=== PATIENT | male | born 1950 | race Caucasian/White ===

== ENCOUNTER → 2023-08-15 10:39 | Outpatient (REF) | payer MEDICARE, SELFPAY | LOC: WOUND 10:39 | PROVIDERS: ATTENDING PHYSICIAN Surgery | DX: L89.313 Pressure ulcer of right buttock, stage 3 (principal); G35 Multiple sclerosis; I82.5Z9 Chronic embolism and thrombosis of unspecified deep veins of unspecified distal lower extremity; I79.0 Aneurysm of aorta in diseases classified elsewhere; I10 Essential (primary) hypertension; E55.9 Vitamin D deficiency, unspecified | CPT/HCPCS: 99204 ==

== ENCOUNTER → 2023-08-22 14:38 | Outpatient (REF) | payer MEDICARE, SELFPAY | LOC: WOUND 14:38 | PROVIDERS: ATTENDING PHYSICIAN Surgery | DX: L89.313 Pressure ulcer of right buttock, stage 3 (principal); G35 Multiple sclerosis; I82.5Z9 Chronic embolism and thrombosis of unspecified deep veins of unspecified distal lower extremity; I79.0 Aneurysm of aorta in diseases classified elsewhere; I10 Essential (primary) hypertension; E55.9 Vitamin D deficiency, unspecified | CPT/HCPCS: 11042 ==

== ENCOUNTER → 2023-09-05 10:24 | Outpatient (REF) | payer MEDICARE, SELFPAY | LOC: WOUND 10:24 | PROVIDERS: ATTENDING PHYSICIAN Surgery | DX: L89.313 Pressure ulcer of right buttock, stage 3 (principal); G35 Multiple sclerosis; I82.5Z9 Chronic embolism and thrombosis of unspecified deep veins of unspecified distal lower extremity; I79.0 Aneurysm of aorta in diseases classified elsewhere; I10 Essential (primary) hypertension; E55.9 Vitamin D deficiency, unspecified | CPT/HCPCS: 11042 ==

== ENCOUNTER → 2023-09-23 14:54 | Outpatient (REF) | payer MEDICARE, SELFPAY | LOC: WOUND 14:54 | PROVIDERS: ATTENDING PHYSICIAN Surgery | DX: L89.313 Pressure ulcer of right buttock, stage 3 (principal); G35 Multiple sclerosis; I82.5Z9 Chronic embolism and thrombosis of unspecified deep veins of unspecified distal lower extremity; I79.0 Aneurysm of aorta in diseases classified elsewhere; I10 Essential (primary) hypertension; E55.9 Vitamin D deficiency, unspecified | CPT/HCPCS: 11042 ==

== ENCOUNTER → 2023-10-06 13:57 | Outpatient (REF) | payer MEDICARE, OTHER, SELFPAY | LOC: WOUND 13:57 | PROVIDERS: ATTENDING PHYSICIAN Surgery | DX: L89.313 Pressure ulcer of right buttock, stage 3 (principal); G35 Multiple sclerosis; I82.5Z9 Chronic embolism and thrombosis of unspecified deep veins of unspecified distal lower extremity; I79.0 Aneurysm of aorta in diseases classified elsewhere; I10 Essential (primary) hypertension; E55.9 Vitamin D deficiency, unspecified | CPT/HCPCS: 99213 ==

== ENCOUNTER → 2023-10-06 14:48 | Outpatient (REF) | payer MEDICARE, OTHER, SELFPAY | LOC: RAD 14:48 | PROVIDERS: ATTENDING PHYSICIAN Surgery | DX: L89.313 Pressure ulcer of right buttock, stage 3 (principal) | CPT/HCPCS: 72190 ==

== ENCOUNTER → 2023-10-21 13:51 | Outpatient (REF) | payer MEDICARE, OTHER, SELFPAY | LOC: WOUND 13:51 | PROVIDERS: ATTENDING PHYSICIAN Surgery | DX: L89.313 Pressure ulcer of right buttock, stage 3 (principal); G35 Multiple sclerosis; I82.5Z9 Chronic embolism and thrombosis of unspecified deep veins of unspecified distal lower extremity; I79.0 Aneurysm of aorta in diseases classified elsewhere; I10 Essential (primary) hypertension; E55.9 Vitamin D deficiency, unspecified | CPT/HCPCS: 97605; 99213 ==

== ENCOUNTER → 2023-10-26 11:51 | Outpatient (REF) | payer MEDICARE, OTHER, SELFPAY | LOC: WOUND 11:51 | PROVIDERS: ATTENDING PHYSICIAN Surgery | DX: L89.313 Pressure ulcer of right buttock, stage 3 (principal); G35 Multiple sclerosis; I82.5Z9 Chronic embolism and thrombosis of unspecified deep veins of unspecified distal lower extremity; I79.0 Aneurysm of aorta in diseases classified elsewhere; I10 Essential (primary) hypertension; E55.9 Vitamin D deficiency, unspecified | CPT/HCPCS: 97605 ==

== ENCOUNTER → 2023-11-04 12:33 | Outpatient (REF) | payer MEDICARE, OTHER, SELFPAY | LOC: WOUND 12:33 | PROVIDERS: ATTENDING PHYSICIAN Surgery | DX: L89.313 Pressure ulcer of right buttock, stage 3 (principal); G35 Multiple sclerosis; I82.5Z9 Chronic embolism and thrombosis of unspecified deep veins of unspecified distal lower extremity; I79.0 Aneurysm of aorta in diseases classified elsewhere; I10 Essential (primary) hypertension; E55.9 Vitamin D deficiency, unspecified | CPT/HCPCS: 99213 ==

== ENCOUNTER → 2023-11-10 11:40 | Outpatient (REF) | payer MEDICARE, OTHER, SELFPAY | LOC: WOUND 11:40 | PROVIDERS: ATTENDING PHYSICIAN Surgery | DX: L89.313 Pressure ulcer of right buttock, stage 3 (principal); G35 Multiple sclerosis; I82.5Z9 Chronic embolism and thrombosis of unspecified deep veins of unspecified distal lower extremity; I79.0 Aneurysm of aorta in diseases classified elsewhere; I10 Essential (primary) hypertension; E55.9 Vitamin D deficiency, unspecified | CPT/HCPCS: 99213 ==

== ENCOUNTER → 2023-11-25 13:53 | Outpatient (REF) | payer MEDICARE, OTHER, SELFPAY | LOC: WOUND 13:53 | PROVIDERS: ATTENDING PHYSICIAN Surgery | DX: L89.313 Pressure ulcer of right buttock, stage 3 (principal); G35 Multiple sclerosis; I82.5Z9 Chronic embolism and thrombosis of unspecified deep veins of unspecified distal lower extremity; I79.0 Aneurysm of aorta in diseases classified elsewhere; I10 Essential (primary) hypertension; E55.9 Vitamin D deficiency, unspecified | CPT/HCPCS: 99213 ==